=== PATIENT | male | born 1965 | race Caucasian/White ===

== ENCOUNTER 2024-07-16 16:16 | Emergency (ER) | payer BC, SELFPAY ==
[2024-07-16 16:47] VITALS: BP 141/88
[2024-07-16 17:48] VITALS: BMI 31.8
--- NOTE | 2024-07-16 18:39 | ED.GENMED ---
History of Present Illness
General
Chief Complaint: Musculo-Skeletal Complaint
Time Seen by Provider: 07/16/24 17:35
History of Present Illness
History of Present Illness:
59-year-old male presents to the emergency department for evaluation of a left wrist injury after tripping on ice and falling with an outstretched hand. Obvious deformity to left wrist, no distal paresthesias
Past History
Past History
ED Past Medical History: None
Social History
Tobacco: Non-smoker
Drug: None
Personal:
Living: with family
Review of Systems
Review of Systems
Allergies reviewed?: Yes
All Other Systems: ROS reviewed and negative except as documented in HPI and ROS
Phy Exam
Physical Exam
Physical Exam:
GEN: Well appearing, NAD, WDWN
HEENT: Oral mucosa moist, no scleral icterus
Cardiac: Regular rate
Lung: No respiratory distress, no tachypnea
MSK: Deformity of the left wrist with dorsal angulation compatible with fracture, radial, ulnar, and median nerve distribution sensation intact
Skin: Good color, no pallor or jaundice, no rashes
Neuro: AO x3, moves all extremities freely
Psych: Calm, cooperative
Course
Orders/Labs/Results
Orders:
Orders
07/16/24 16:40
Wrist, Left 3 Views CR [CR Wrist - Left Min 3 Views] Urgent
Comment:
Reason For Exam: pain after a fall, decreased ROM.
07/16/24 18:05
CR Wrist - Left Min 2 Views Urgent
Comment:
Reason For Exam: post reduction
Vital Signs
Initial and Last Documented VS:
Initial Vital Signs
Temp Pulse Resp BP Pulse Ox
98.7 F 89 16 141/88 99
07/16/24 16:47 07/16/24 16:47 07/16/24 16:47 07/16/24 16:47 07/16/24 16:47
Last Documented Vital Signs
Temp Pulse Resp BP Pulse Ox
98.7 F 89 16 141/88 99
07/16/24 16:47 07/16/24 16:47 07/16/24 16:47 07/16/24 16:47 07/16/24 16:47
Procedures
Joint/Fracture Reduction
Left wrist:
Indication for procedure:: Displaced distal radius fracture
Procedure completed by: Dudley Quevedo PA-C
Joint reduced: without anesthesia
Anesthesia/sedation: 1% Lidocaine and Injection to joint space
Injury was: closed
Further treatement: needs further treatment
Post reduction exam: stable
Capillary Refill: normal
Normal distal neurovascular exam?: Yes
MDM/Problems Addressed
MDM/Problems Addressed:
Hematoma block given and bedside reduction attempted with moderate improvement in alignment. Patient remains neurovascularly intact and has previously scheduled orthopedic follow-up to our tomorrow morning. Sugar-tong splint applied, will
follow-up with orthopedics tomorrow
*Critical Care Note
Total Time (30-74mins, 75-104mins- exclusive of procedures): Not Applicable
ED Attending Note
-
Portions of this chart may have been created with voice recognition software.� Occasional wrong word or��sound alike� substitutions may have occurred due to the inherent limitations of voice recognition software.
Discharge Plan
Departure
Patient Disposition: Home (Routine Discharge)
Date of Disposition: 07/16/24
Time of Disposition: 18:51
Patient with high blood pressure during this ER visit?: No
Discharge Problem:
Closed fracture of distal end of left radius
Instructions: Wrist Fracture (DC)
Prescriptions:
New
oxycodone 5 mg tablet
5 mg PO Q8H PRN (Reason: Pain) Qty: 8 0RF
No Action
amoxicillin-pot clavulanate 1 TABLET tablet
1 tab PO Q12 Qty: 10 0RF
Referrals:
Carol Otto I., DO [Active] -
Elio Mitchell MD [Family Provider] -
Activity Restrictions/Additional Instructions:
Splint must stay in place and cannot get wet
follow up with Ortho tomorrow as planned
Interventions
Interventions:
*Risk Screen - Suicide Last Done: 07/16/24 16:47
*General Assessment Last Done: 07/16/24 16:47
*Neglect/Abuse Screening Last Done: 07/16/24 18:30
ED- Fall Risk Assessment Last Done: 07/16/24 17:47
*ED COVID-19 Vaccine History Last Done: 07/16/24 17:47
ED-Musculoskeletal Assessment Last Done: 07/16/24 17:47
Discharge Date and Time
Print Language: [id number]
[2024-07-16] MEDS: ROXICODONE 5 MG PO (18:59)
[2024-07-16 19:09] VITALS: BP 148/87
== END 2024-07-16 19:12 | disposition home or self-care (01) ==
LOC: EMR 16:16
PROVIDERS: EMERGENCY PHYSICIAN Emergency Medicine; FAMILY PHYSICIAN Family Medicine
DX: S52.502A Unspecified fracture of the lower end of left radius, initial encounter for closed fracture (principal); W00.0XXA Fall on same level due to ice and snow, initial encounter
CPT/HCPCS: 25605; 99283; 73100; 73110